=== PATIENT | female | born 1980 | race Caucasian/White ===

== ENCOUNTER 2023-04-25 07:23 | Emergency (ER) | payer OTHER, SELFPAY ==
[2023-04-25 08:16] LABS: #Basophils 0.1 10x3/uL (0.0-0.2); #Eosinphils 0.2 10x3/uL (0.0-0.5); #Monocytes 0.7 10x3/uL (0.0-1.1); #Neutrophils 6.1 10x3/uL (1.5-8.4); %Basophils 0.5 % (0.0-2.0); %Eosinophils 1.8 % (0.0-6.0); %Lymphocytes 30.7 % (18.0-47.0); %Monocytes 7.2 % (0.0-10.0); %Neutrophils 59.4 % (40.0-75.0); Hematocrit 37.4 % (34.9-44.5); Hemoglobin 12.9 g/dL (12.0-15.5); Mean Corpuscular HGB CONC 34.5 g/dL (32.0-36.0); Mean Corpuscular Hemoglobin 31.6 pg (27.0-33.0); Mean Corpuscular Volume 91.7 fl (81.6-98.3); Mean Platelet Volume 9.8 fl (7.4-10.4); Platelet Count 292 10x3/uL (150-450); RBC Distribution Width 11.8 % (11.5-14.5); Red Blood Cell (RBC) Count 4.08 10x6/uL (3.90-5.03); White Blood Cell (WBC) Count 10.2 10x3/uL (3.5-10.5)
[2023-04-25] MEDS ORDERED: Dexamethasone 10 MG/ML VIAL ONE (08:29)
[2023-04-25] MEDS ORDERED: Ketorolac Tromethamine 30 MG/ML VIAL ONE (08:30)
[2023-04-25] MEDS ORDERED: Metoclopramide HCl 10 MG/2 ML VIAL ONE (08:30)
[2023-04-25 08:36] LABS: ALT (SGPT) 34 U/L (8-55); AST (SGOT) 27 U/L (5-34); Albumin 4.2 g/dL (3.5-5.0); Alkaline Phosphatase 67 U/L (40-110); Anion Gap 19 mmol/L (10-20); BUN (Urea Nitrogen) 10 mg/dL (7.0-18.7); Bilirubin, Total 0.3 mg/dL (0.2-1.2); Calc. Creatinine Clearance 0 mL/min (70-130); Calcium 8.8 mg/dL (7.8-10.44); Carbon Dioxide 20 mmol/L (22-29); Chloride 105 mmol/L (98-107); Estimated GFR 83; Globulin 3.1 g/dL (2.4-3.5); Glucose 90 mg/dL (70-105); Potassium 3.7 mmol/L (3.5-5.1); Protein, Total 7.3 g/dL (6.0-8.3); Sodium 140 mmol/L (136-145)
== END 2023-04-25 09:12 | disposition home or self-care (01) ==
LOC: CSHERS 07:23
DX: R51.9 Headache, unspecified (principal); Z87.891 Personal history of nicotine dependence
CPT/HCPCS: 70450; 80053; 85025; 96374; 96375; J1100; J1885; J2765